=== PATIENT | male | born 1980 | race Caucasian/White ===

== ENCOUNTER 2021-08-19 21:24 | Inpatient (IN) | payer SELFPAY ==
[~2021-08-19] VITALS: Ht 177.8 cm; Wt 90.7 kg
--- NOTE | 2021-08-19 21:29 | NUR ---
PT AAOX0. BIBRA C/O BEING ALTERED. PER FRIEND PT HAD METH AND POSSIBLY ALCOHOL EARLIER. 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 PLACED IN BED 13 ON CARIDIAC MONITOR AND PULSE OX. AWAITING ER MD FOR EVAL AND ORDERS.
[2021-08-19 22:02] LABS: BASOPHILS % (AUTO) 0.2 % (0.0-2.0); EOSINOPHILS % (AUTO) 0.3 % (0.0-6.0); HEMATOCRIT 41 % (39-51); HEMOGLOBIN 14.1 g/dL (13.5-17.5); LYMPHOCYTES # (AUTO) 0.8 K/uL (0.8-4.8); LYMPHOCYTES % (AUTO) 7.3 % (20.0-44.0); MEAN CORPUSCULAR HGB CONC 35 g/dl (31.0-36.0); MEAN CORPUSCULAR VOLUME 93 fL (80-96); MONOCYTES # (AUTO) 0.7 K/uL (0.1-1.30); MONOCYTES % (AUTO) 6.1 % (2.0-12.0); NEUTROPHILS # (AUTO) 9.4 K/uL (1.8-8.9); NEUTROPHILS % (AUTO) 86.1 % (43.0-81.0); PLATELET COUNT (AUTO) 251 K/uL (150-450); WHITE BLOOD COUNT (AUTO) 10.9 K/uL (4.3-11.0)
[2021-08-19 22:11] LABS: BILIRUBIN,URINE MODERATE (NEGATIVE); COLOR,URINE YELLOW (YELLOW); LEUKOCYTE ESTERASE ,URINE Negative (NEGATIVE); NITRITE, URINE Negative (NEGATIVE); PROTEIN,URINE 100 mg/dl (NEGATIVE); UGLUCOSE Negative (NEGATIVE)
[2021-08-19 22:17] LABS: CARBON DIOXIDE 24 mmol/L (21-32); CHLORIDE 99 mmol/L (98-107); CREATININE 1.9 mg/dL (0.6-1.3); GLUCOSE 97 mg/dL (74-106); POTASSIUM 3.7 mmol/L (3.5-5.1); SODIUM SERUM 137 mmol/L (136-145); UREA NITROGEN, BLOOD 32 mg/dL (7-18)
[2021-08-19 22:21] LABS: ALANINE AMINOTRANSFERASE 205 U/L (12-78); ALCOHOL, BLOOD < 3 mg/dL (0-0); ALKALINE PHOSPHATASE 52 U/L (46-116); ASPARTATE AMINOTRANSFERASE 297 U/L (15-37); BILIRUBIN,DIRECT 0.5 mg/dL (0.0-0.2); BILIRUBIN,TOTAL 1.4 mg/dL (0.2-1.0); TOTAL PROTEIN, SERUM 8.3 g/dL (6.4-8.2)
[2021-08-19 22:22] LABS: BACTERIA,URINE Rare /HPF (None Seen); SQUAMOUS EPITHELIAL CELL,UR Few /HPF (None Seen); WBC,URINE NONE SEEN /HPF (0-3)
[2021-08-19 22:24] LABS: ACETAMINOPHEN < 2 ug/ml (10-30)
[2021-08-19] MEDS ORDERED: IV NS 0.9% 1,000 ML BAG IV ONE (23:00)
[2021-08-20] MEDS ORDERED: IV NS 0.9% 1,000 ML BAG IV ONE (01:30)
--- NOTE | 2021-08-20 01:36 | NUR ---
MRSA SWAB COLLECTED AND SENT TO LAB. PATIENT'S BELONGINGS LIST DONE.
--- NOTE | 2021-08-20 04:53 | NUR ---
PT NOW AWAKE, RESTING COMFORTABLY. VSS.
[2021-08-20] MEDS ORDERED: MAG HYDROX/AL HYDROX/SIMETH 30 ML UDC PO PRN (05:00)
[2021-08-20] MEDS ORDERED: Z GUARD REMEDY 2 OZ OINT TP PRN (05:00)
[2021-08-20] MEDS ORDERED: IV NS 0.9% 1,000 ML IV PRN ×2 (05:00→11:53)
[2021-08-20] MEDS ORDERED: MAGNESIUM HYDROXIDE 30 ML UDC PO PRN (05:00)
[2021-08-20] MEDS ORDERED: ONDANSETRON HCL/PF 4 MG/2 ML VIAL IVP PRN (05:00)
[2021-08-20] MEDS ORDERED: ACETAMINOPHEN 325 MG TABLET PO PRN (05:00)
--- NOTE | 2021-08-20 06:08 | NUR ---
REPORT GIVEN TO RN FOR DAX. PT WILL BE TRANSFERED.
--- NOTE | 2021-08-20 06:34 | NUR ---
PT TRANSFERED PER ACLS PROTOCOL
[2021-08-20 06:53] VITALS: BP 104/43
--- NOTE | 2021-08-20 07:20 | NUR ---
MS RN OPENING NOTE RECEIVED PATIENT ALERT/ ORIENTED X 2-3. UNABLE TO RECALL HOW HE GOT TO THIS HOSPITAL. LAST RECOLLECTION WAS THAT HE FAINTED AND HIT HIS HEAD. HE KNOWS THAT HE IS IN THE HOSPITAL BUT DOESNT KNOW EXACTLY WHICH HOSPITAL. PATIENT IS ON ROOM AIR WITH EQUAL AND UNLABORED BREATHING WITH NO SIGNS OF RESPIRATORY DISTRESS. PATIENT DOS NOT COMPLAIN OF PAIN OR DISCOMFORT FOR NOW. PATIENT WITH IV ACCESS ON RIGHT AC G 18 PATENT AND INTACT. SAFETY MEASURES ENSURED WITH BED LOCKED AND AT LOWEST POSITION, WITH SIDERAILS UP. CALL LIGHT AND TABLE WITHIN REACH AT ALL TIMES. WILL CONTINUE TO MONITOR PATIENT.
[2021-08-20] MEDS ORDERED: PANTOPRAZOLE 40 MG TABLET.DR PO SCH (07:30)
[2021-08-20 08:00] VITALS: BP 126/84
--- NOTE | 2021-08-20 10:10 | NUR ---
RETORT COOLER NOTE PATIENT IS RESTLESS AT TIMES. WOULD KEEP ON PACING WHEN NURSE IS NOT IN SIGHT, DESPITE HEALTH TEACHINGS REGARDING SAFETY AND FALL PRECAUTIONS. PATIENT ALSO HAD BEEN REMOVING MEDICAL DIRECTOR AND REMOVED HIS IV ACCESS. SPOKE WITH PATIENT AND EXPLAINED THE IMPORTANCE OF HIS HOSPITALIZATION AND AGREED TO STAY AND TALK TO DOCTOR. DR. VILLEGAS NOTIFIED. PATIENT INSISTED ON GOING TO THE SHOWER AND DR. VILLEGAS WILL RETURN TO SEE THE PATIENT ONCE HE IS DONE WITH HIS SHOWER. PATIENT CLOSELY MONITORED.
--- NOTE | 2021-08-20 12:00 | NUR ---
PEDIATRIC SPEECH THERAPIST NOTE PATIENT SEEN BY DR. VILLEGAS AND WAS SAYING HE CAN PROBABLY STAY BUT DECIDED THAT HE WILL LEAVE AFTER LUNCH. REPERCUSSIONS OF ACTIONS EXPLAINED REGARDING HOME AGAINST MEDICAL ADVICE. VERBALIZED UNDERSTANDING AND APPRECIATION. SIGNED AMA FORM AND ATTACHED TO CHART. DR. VILLEGAS AWARE. IV ACCESS REMOVED AND SO WAS THE ID BAND. WILL CONTINUE TO MONITOR.
--- NOTE | 2021-08-20 12:50 | NUR ---
CARTON REPAIRER NOTE PATIENT WENT HOME AGAINST MEDICAL ADVISE. NOTIFIED. IN STABLE CONDITION. ENDORSED ACCORDINGLY.
--- NOTE | 2021-08-20 12:57 | NUR ---
"SS consult for homelessness. Pt. Is a 40-year-old male. Pt. does not demonstrate adequate insight to the reason for hospitalization. Per pt., he does not remember how he got to the hospital. Pt. was oriented x2, and alert. During interview, pt. was capable of following directions, made appropriate eye-contact, but kept giggling. Pt.s speech was at a low rate. SW explored pt.s Hx of mental health and substance abuse. Pt. reported no Hx of mental health, substance abuse, suicidal or homicidal. Pt. denies auditory hallucinations, visual hallucinations, paranoia, or delusions. Per EMR, pt. was tested positive for methamphetamine. Per pt., he denied substance use. SW explored pt.s living situation. Per pt., he is homeless. Pt. reported that he has been homeless for couple years. Per pt., he reports having no adequate support. During interview, pt. was disclosed when answering questions. Pt. signed homeless waiver and is placed in pt.s chart. Plan: SW provided available resources and pt. accepted. Once discharge, per pt., he will return to the streets, but will use the resources that are provided. Resources Provided: Year-round shelters: [place] [address] [place] [address] ; [facility] [place] [address] [place] [address]; [facility] Tchnpvu3959 [facility] [address] Winter Shelters: [facility] Provider: [facility] Address: [facility], [address] # of Beds: 47 Population Served: [facility] 6 | [facility] Jessica Gonzales [place] Provider: [facility] Last Address: [address], [address] # of Beds: 66 Population Served: [facility] [place] Provider: [facility] Serve Address: [address] [facility], [address] # of Beds: 56 Population Served: [facility] [place] Provider: / [facility] Address: [address] [facility], [address] # of Beds: 49 Population Served: [facility] 8 | [employer] Provider: [facility] Serve Address: [address] [place], [place] [address]Jose Hale [address] # of Beds: 37 Population Served: [facility]: [facility]: [address] [place] ; [facility] [address] [facility] ; [facility] [address], [place] . Food Resources: [facility]- [address] [place]; Meet Each Need with Dignity ([facility]) [address] [facility]; [facility] [address] [facility]; [facility] [address] [facility]. Mental Health resources provided: [facility] [address] [place] [address] ; [facility] [address] [facility] [address], [place], [place] [id number] ; [facility] [address] [place] [place], [place] [id number] ; [facility] [address] [place], [place] [id number] Healthcare Clinics: [facility] [address] [facility], [address] [place]. [place] ; [facility] [address] [facility] [address] [place] [address]; [facility] [address] [facility]. [place] [phone]) [phone] Counseling--Outpatient [facility] [address] [facility], [place] [address] (Specializes in in-depth psychotherapy for emotional distress: anxiety, depression, interpersonal conflicts, life transitions, childhood abuse) [facility] [address] [place], [place] [address] (Assist with solving problem marital difficulties, separation & divorce, aging parents, & grief, chronic & terminal illness) [facility] [address] [place], [place] [address] (Deal with loss & grief, anxiety, marital difficulties) Homebound/Mental Health Services [address] [facility] [address] [place], [place] [phone] (Provide in-home mental services to people who are incapable of leaving their homes) [facility] Elderly Senior Service/Resource Center [address] [place] [address] [facility] [address] [place] [address] PSYCHIATRIC OUTPATIENT SERVICES [facility] Partial Hospitalization and Intensive Outpatient Program (Managed Care and [place] Only)[address] [facility] [phone] [facility] Partial Hospitalization and Outpatient Hhysnlu12101 [facility] [address] [place], [place] [phone] [facility] [place] Att[address] [facility] [address] [place], [place] [phone] [facility] Partial Hospitalization and Outpatient Fgebsib54152 [place], [phone] Substance Abuse resources provided included: [facility] Substance Abuse Self-Helpline (SASH) ; CRI [facility]LP [address] [facility]. [place] [address] ; [facility] [address] [facility] [address] ; [facility] [address] [facility] [address] ; [place] [address] [facility] [address] ; [facility] [address] Emmett Kahn [facility] [address] ; [facility] [address] [facility] [phone] ; [facility] Substance Abuse Helpline(SASH)-[facility] ; [facility] ; [facility] Hiram Winslow; [facility] [place]; [facility] [place]; [facility] Emmett Kahn; [place] [facility] [place]; [place]; [facility]; [facility], [facility]. Angelina Carmichael; Alcoholics Anonymous -SFV; Nu-Umaa-Hmzagos ; Marijuana Anonymous -SFV; Narcotics Anonymous www.na.org;"
== END 2021-08-20 12:50 | disposition left against medical advice (07) | DRG 682 ==
LOC: ER 21:26 → TELE 08-20 03:26
PROVIDERS: ADMIT Student in an Organized Health Care Education/Training Program; ATTEND Student in an Organized Health Care Education/Training Program
DX: N17.0 Acute kidney failure with tubular necrosis (principal); G92.9 Unspecified toxic encephalopathy; J98.11 Atelectasis; R74.01 Elevation of levels of liver transaminase levels; Z20.822 Contact with and (suspected) exposure to COVID-19; Z59.00 Homelessness unspecified; M62.838 Other muscle spasm; F15.10 Other stimulant abuse, uncomplicated
CPT/HCPCS: 36415; 70450-TC; 71045-TC; 72125-TC; 80048-TC; 80076-TC; 81001; 82550-TC; 82553; 82962-TC; 84484-TC; 85025-TC; 87081-TC; C9803; G0378; G0480; J7030